=== PATIENT | male | born 1945 | race Caucasian/White ===

== ENCOUNTER → 2018-08-07 14:39 | Outpatient (CLI) | payer MEDICARE, OTHER, SELFPAY ==
--- NOTE | 2018-08-07 14:42 | DI.US.S_ITS ---
PROCEDURE: US ABDOMEN COMPLETE INDICATIONS: PAIN TECHNIQUE: Real-time scanning was performed of the abdominal and retroperitoneal organs, with image documentation. COMPARISON: None. FINDINGS: Liver: Liver is normal in size and homogeneous in echotexture. Gallbladder: The gallbladder appears filled with gallstones. The gallbladder wall is mildly thickened at 3.3 mm. No specific pericholecystic fluid is seen. There is a positive sonographic Arciniega sign. Biliary ducts: Intrahepatic bile ducts are non-dilated. Extrahepatic bile duct caliber measures 7 mm. Normal is 6-7 mm or less in diameter, or 10 mm or less post-cholecystectomy. Pancreas: Visualized portions of the pancreas are sonographically normal. Spleen: Spleen is normal in size and homogeneous in echotexture. Kidneys: Kidneys are normal in size and echotexture. Right kidney measures 9.9 cm long; left kidney measures 10.8 cm long. No hydronephrosis or nephrolithiasis. No solid masses. The renal cortex measures within normal limits for thickness. Aorta: Visualized aorta is normal in caliber at less than 3 cm. Iliacs: Proximal common iliac arteries are normal in caliber at less than 2.5 cm. IVC: Intrahepatic inferior vena cava is patent. Miscellaneous: No free abdominal fluid. IMPRESSION: Findings suspicious for acute cholecystitis, with gallstones, gallbladder wall thickening, and a positive sonographic Arciniega's sign. Dictated by: Atilio Taylor M.D. on 08/07/2018 at 14:11 Approved by: Atilio Taylor M.D. on 08/07/2018 at 14:13
== END ==
PROVIDERS: PCP Internal Medicine; Visit Provider Specialist
DX: K80.80 Other cholelithiasis without obstruction (principal); R10.11 Right upper quadrant pain
CPT/HCPCS: 76700

== ENCOUNTER 2018-08-21 07:44 | Day surgery (SDC) | payer MEDICARE, OTHER, SELFPAY ==
[2018-08-15 08:14] VITALS: BMI 27.8
[2018-08-21] VITALS (11 sets, daily range): BP systolic 114–151; BP diastolic 62–79; PULSE 65–99; RESP 12–21; TEMP 36.3–36.6; O2SAT 88–100; BMI 27.8
--- NOTE | 2018-08-21 | PATH_ITS ---
[facility] Accession Number: [id number] . 01 Material submitted: . GALLBLADDER AND CONTENTS . 02 Diagnosis: Gallbladder: Cholelithiasis with associated acute and chronic cholecystitis. MRV/08/25/2018 . 02 Electronically signed: . Jens Sherman MD, Pathologist NPI- [id number] . 01 Gross description: . Received in formalin, labeled gallbladder and contents, is a gallbladder in multiple pieces (6.5 cm in aggregate, largest piece diameter-3.5 cm) with neri-pink smooth and shiny serosa and an identifiable patent cystic duct. No lymph nodes are identified. The lumen of the largest piece contains multiple ahn yellow multifaceted smooth friable calculi (3.5 x 1.5 x 0.3 cm in aggregate). The mucosa is avendaño-black smooth and flat. The wall is up to 0.2 cm thick. No nodules, masses or lesions are identified. Section code: (A1) cystic duct resection margin and two serial sections from the body; (A2) two longitudinal sections from the fundus. ([id number]) /[facility] . 02 Pathologist provided ICD-10: K80.66 . 02 CPT . 981440 Specimen Comment: A duplicate report has been generated due to demographic updates. Performed at: 01 [facility] [address], [place], [place] [id number] MD Gab Marie MD Phone: [phone] Performed at: 02 [facility] [address] [place], [place] [id number] MD Toni Holder MD Phone: [phone]
[2018-08-21] MEDS: LACTATED RINGERS 1,000 ML 42 ML IV (08:09)
--- NOTE | 2018-08-21 09:08 | PM.PREOP ---
Pre-operative Note Interval Note Pre-op Check: Yes History & Physical exam performed today by Physician Changes: No
[2018-08-21] MEDS: CEFOTETAN 2 GM/50 ML PIGGYBACK IV (09:35)
--- NOTE | 2018-08-21 10:01 | SUR.OPER ---
Supine on padded OR bed, head on pillow, safety belt at thigh. Both arms secured on padded arm board <90 degrees abduction. Legs uncrossed. Padded footboard in place gel pad under heels. Tape over blanket to secure lower legs.
[2018-08-21] MEDS: BUPIVACAINE 0.5% (PF) VIAL 30 ML INJ (10:20)
--- NOTE | 2018-08-21 12:00 | PM.OP.1 ---
Operative Date/Time/Diagnoses Date of procedure: 08/21/18 Time of procedure: 12:00 Pre-op diagnosis: Cholelithiasis cholecystitis Post-op diagnosis: same (Appeared to be acute and chronic cholecystitis. Path pending) Procedure & Clinicians Procedure: Laparoscopic cholecystectomy Same procedure as scheduled: Yes Indications: Symptomatic gallbladder disease Surgeon: Pablo Valenzuela Click Yes if Unassisted: Yes Anesthesia Type: General Operative Notes Findings: Patient appeared to have chronic cholecystitis with a come an acute component. There were what appeared to be new adhesions of omentum to the surface of the gallbladder. Closure Type: primary (Umbilical wound left open see details below. other wounds closed) Specimen(s): other (Gallbladder and contents) Estimated Blood Loss (mL): 25 Blood products transfused: none Procedure in detail: The patient was placed supine on the operating room table and underwent general endotracheal anesthesia. he was prepped and draped in the usual fashion. Because of a prior umbilical hernia repair with mesh my incision was made to the right of the umbilicus. It was a transverse incision. This carried down under direct vision through the anterior and posterior fascia into the peritoneal cavity. Stay sutures of 0 Polysorb were placed in the anterior and posterior fascia. Both were opened in a transverse fashion. And a son cannula was inserted and 3 additional ports were placed under the right costal margin. The patient was reposition. The gallbladder was identified is a tensely distended structure incased in part in what appeared to be fairly fresh adhesions of omentum. Attempt to grasp the gallbladder but it was too tense and therefore inserted a needle and aspirated about 5 cc of greenish fluid. I could get no more out. The remainder of the tensely filled gallbladder was presumed to be stones. With some difficulty I elevated the gallbladder and dissected the 0 adhesions off of its surface down to the end. The section if the end of the gallbladder revealed what appeared to be a ductal structure and vascular structure that was singular nature going directly the gallbladder. In addition there appeared to be either lymphatic or venous structure going as well. Three clips were placed across all these structures and they were divided leaving 2 in the patient. The gallbladder was then dissected very slowly it from its bed in the liver. This was a tedious process because the had difficulty grasping the gallbladder and reflecting it adequately. However I was able to detach it and I decided to place it in a bag to remove it. This was brought out through the umbilical port. Bowel bladder was so tensely filled with stones a could not pull it through my fascial incisions therefore or I opened the bag and evacuated the mini packed stones from the inside of the gallbladder. I also ended up pulling the gallbladder part in extracting it. If this was a very long tedious process probably taking 30 or 40 min to do because of the number of stones in difficulty. Ultimately I was able to pull the gallbladder and bag out there was some staining of the subcu fat and fascia which I trimmed away. I then irrigated the umbilicus. The Reagan cannula was placed back inside and I re-examined the right upper quadrant. There had been no significant bleeding while I was dealing with the gallbladder. I irrigated out the gallbladder fossa in the right gutter. I decided to cauterize a few small areas in the gallbladder fossa just to be certain they would not bleed later. The ports were then all removed. I did examine the area under the Reagan port. There had been no internal spillage of stones. Because of the staining of the soft tissues I did close the fascia with interrupted 2 0 Maxon as well as the stay sutures. I left the subcu and skin open however and packed it with a 2 x 2 gauze. The other wounds were irrigated and 4- 0 Vicryl was used to close the skin along with Mastisol and Steri-Strips. Band-aids were applied. Patient was awakened and taken to recovery area in good condition. There were no apparent complications. Complications: none Condition: stable Disposition: PACU Plan for aftercare: In the office
--- NOTE | 2018-08-21 12:44 | SUR.PHASEI ---
PT HAS DINMINISHED BREATH SOUNDS IN LEFT LOWER LOBE AND CRACKLES NOTED IN RIGHT LOWER LOBE, COUGH AND DEEP BREATHING ENCOURAGED, PT USING INCENTIVE SPIROMETER.
--- NOTE | 2018-08-21 12:57 | SUR.PHASEI ---
DR CHI IN TO SEE PT, WE WILL SEND PT TO PHASE 2 . LUNG SOUNDS MUCH INPROVED, PT COUGH AND DEEP BREATHING AND USING INCENTIVE SPIROMETER, DENIES ANY SHORTNESS OF BREATH OR DIFFICULTY BREATHING
[2018-08-21] MEDS: OXYCODONE/ACETAMINOPHEN 5/325 TABLET 1 TAB PO (13:03)
[2018-08-21] MEDS: ALBUTEROL 2.5 MG/3 ML NEB (ADULT) INH (13:08)
--- NOTE | 2018-08-21 13:08 | SUR.PHASEI ---
PT WHILE EATING CRACKERS HAD SATS DROP TO 88 %, DR CHI AWARE, WILL GIVE PT A NEBULIZER ALBUTEROL TREATMENT AND CONTINUE TO MONITOR
--- NOTE | 2018-08-21 13:17 | SUR.PHASEI ---
REPORT TO RELIEF RN RAY, DR CHI INFORMED OF PTS STATUS, IMPROVED LUNG SOUNDS THROUGHOUT BUT REMAINS DIMINISHED IN BASES AND LEFT GREATER THAN RIGHT. DR CHI AWARE AND WILL REEVALUATE.
--- NOTE | 2018-08-21 14:08 | SUR.PHASEII ---
Lung sounds are globally decreased. ? Guarding but denies pain. Sats as low as 88% but with deep breath as high as upper 90's. Discharge instructions amended by pen and copy in chart. Removed outer dressing but left packing in place, replacing outer dressing and reviewing with how to change the dressing. Supplies given to family. Dr. De Oliveira also seeing the patient and giving d/c approval after listening to lungs and seeing VS. He reinforced using the IS. On discharge the patient in no acute distress. Color is pink. Pain is 2/10. Ilan did desire discharge home.
== END 2018-08-21 14:13 | disposition home or self-care (01) ==
LOC: OR 07:45
PROVIDERS: PCP Internal Medicine; Visit Provider Specialist
PROC: 0FT44ZZ Resection of Gallbladder, Percutaneous Endoscopic Approach (ICD-10-PCS; CPT 47562; principal; 2018-08-21 09:15)
DX: K80.66 Calculus of gallbladder and bile duct with acute and chronic cholecystitis without obstruction (principal); K66.0 Peritoneal adhesions (postprocedural) (postinfection); I10 Essential (primary) hypertension
CPT/HCPCS: 47562; 88304; J1100; J2250; J2405; J2704; J3010; J7613

== ENCOUNTER → 2022-07-26 12:57 | Outpatient (CLI) | payer MEDICARE, OTHER, SELFPAY ==
--- NOTE | 2022-07-26 | DI.NM.S_ITS ---
PROCEDURE: NM DYANA PERF SPECT R&S PHARM Rest and pharmacological stress myocardial perfusion SPECT with gated imaging and ejection fraction RADIOPHARMACEUTICAL: 26.9 mCi Tc-99m tetrafosmin IV at rest and 27.0 mCi Tc-99m tetrafosmin IV at peak effect of pharmacological stress. [id number] was performed. INDICATIONS: dizziness and giddiness TECHNIQUE: Radiopharmaceutical was injected at peak stress test, and also at rest. SPECT images were obtained. SPECT myocardial perfusion images were displayed in short axis, horizontal long axis, and vertical long axis views. Gated images were reviewed using [employer] software. COMPARISON: None. CARDIAC STRESS: A pharmacologic stress test was performed under the supervision of an attending staff, using an infusion of regadenoson. Hemodynamic data: There is normal blood pressure and heart rate response to pharmacologic stress. Symptoms: The patient denied anginal chest pain. EKG: Sinus rhythm, 1-[address] segment depressions leads II, III, aVF and V3-V6. Frequent PVCs. FINDINGS: Raw data: There is good myocardial uptake of radiotracer. No significant motion artifacts. Left ventricle function: Gated images demonstrate normal left ventricular wall thickening. No segmental wall motion abnormalities. No transient ischemic dilation, 0.9 to. Left ventricle resting end diastolic volume is 83 mL. Left ventricle stress ejection fraction is 70%; normal range is above 45%. Myocardial perfusion: There is normal distribution of activity in the right and left ventricular myocardium. No fixed or reversible perfusion defects. IMPRESSION: No evidence of pharmacologic induced ischemia or scar. Abnormal ECG with ST segment depressions and frequent PVCs is not diagnostic of ischemia in the setting of pharmacologic stress. Normal left ventricular function and wall motion. Dictated by: Lexie Singh D.O. on 07/27/2022 at 16:33 Approved by: Lexie Singh D.O. on 07/27/2022 at 16:36
[2022-07-26 14:53] LABS: COVID19 -Nasal RAPID Negative (Negative)
== END ==
PROVIDERS: PCP Internal Medicine; Referring Provider Internal Medicine; Visit Provider Internal Medicine
DX: R42 Dizziness and giddiness (principal); I49.3 Ventricular premature depolarization
CPT/HCPCS: 78452; 87635; 93017; A9502; J2785

== ENCOUNTER → 2024-04-16 12:19 | Outpatient (CLI) | payer MEDICARE, OTHER, SELFPAY ==
--- NOTE | 2024-04-16 12:21 | DI.MRI.S_ITS ---
PROCEDURE: MR LUMBAR SPINE WO CON INDICATIONS: Spinal stenosis, lumbar region TECHNIQUE: Noncontrast sagittal T1 spin echo and T2 fast echo, sagittal STIR, and T2 fast spin echo through the lumbar spine. In cases with scoliosis, additional coronal T2 fast spin echo may be performed. COMPARISON: None. FINDINGS: Image quality: Excellent. Alignment and Curvature: Patient is status post posterior fusion from L2-L5 and discectomy at L2-3 and L4-5. There is grade I L3-4 anterolisthesis. Bone Marrow: Marrow is of normal overall signal. No acute vertebral body compression fractures. Spinal Cord: Conus medullaris terminates at the L1 level. Visualized cord demonstrates normal signal and size. Paraspinous Soft Tissues: No paravertebral masses. T12-L1: Mild disc desiccation and height loss. Broad-based disc bulge. Mild facet ligamentum flavum hypertrophy. No canal stenosis. Mild bilateral foraminal stenosis. L1-L2: Moderate disc desiccation and height loss. Broad-based disc bulge. Moderate facet and ligamentum flavum hypertrophy. Severe canal stenosis. Severe left and moderate right foraminal stenosis. L2-L3: Posterior fixation and discectomy. Left hemilaminectomy. No canal stenosis. Severe bilateral foraminal stenosis. L3-L4: Grade I anterolisthesis. Posterior fixation. Probable left hemilaminectomy. No canal stenosis. Severe bilateral foraminal stenosis. L4-L5: Posterior fixation and discectomy. No canal stenosis. Severe bilateral foraminal stenosis with flattening of the exiting right nerve root. L5-S1: Mild disc desiccation and height loss. Mild facet ligamentum flavum hypertrophy. Broad-based disc bulge. No canal stenosis. Severe right and moderate left foraminal stenosis. There is flattening of the exiting right nerve root. IMPRESSION: 1. Extensive postoperative and degenerative changes as above. There is resultant severe canal stenosis at L1-2. 2. There is severe left foraminal stenosis at L1-2, severe right foraminal stenosis at L5-S1, and severe bilateral foraminal stenosis at L2-3 and L3-4. On the right at L4-5 and L5-S1 there is flattening of the exiting right nerve root. 3. Moderate right foraminal stenosis at L1-2 and moderate left foraminal stenosis at L5-S1. Dictated by: Allison Marrero M.D. on 04/16/2024 at 13:19 Approved by: Allison Marrero M.D. on 04/16/2024 at 13:38
== END ==
LOC: MRI 12:20
PROVIDERS: PCP Internal Medicine; Referring Provider Physical Medicine & Rehabilitation; Visit Provider Physical Medicine & Rehabilitation
DX: M48.062 Spinal stenosis, lumbar region with neurogenic claudication (principal); Z98.1 Arthrodesis status
CPT/HCPCS: 72148